=== PATIENT | male | born 1970 | race Caucasian/White ===

== ENCOUNTER 2018-05-23 15:45 | Outpatient (CLI) | payer OTHER ==
[2015-04-02 14:44] VITALS: BP 118/88
--- NOTE | 2018-05-24 18:58 | Diagnostic Imaging Report ---
TERENCE VIRAMONTES ([place]) - OP [facility] [address] [facility].[address] [id number] Report Submission Date: May 23, 2018 4:59:40 PM AIRLINE OPERATIONS AGENT Patient Study Name: MELINDA KRAMER Date: May 23, 2018 3:00:41 PM AIRLINE OPERATIONS AGENT Modality Type: DX Gender: M Description: LOWER EXTREMITY : 72 Institution: [facility] Physician: TERENCE VIRAMONTES ([place]) - OP Examination: Plain film right foot History: FOOT PAIN (Hx) Findings: 3 views of the right foot demonstrates normal cortical margins. No fracture or dislocation. No soft tissue swelling. No joint effusion. Impression: No acute osseous process. Electronically signed on May 23, 2018 4:59:40 PM AIRLINE OPERATIONS AGENT by: Hoang TRIPATHI
== END 2018-05-23 16:00 ==
LOC: RAD 15:45
PROVIDERS: ATTEND Nurse Practitioner Family
DX: M79.671 Pain in right foot (principal)
CPT/HCPCS: 73630